=== PATIENT | female | born 1950 | race Caucasian/White ===

== ENCOUNTER 2016-12-04 08:56 | Outpatient (RCR) | payer MEDICARE, MEDICAID ==
[2015-07-25 11:28] VITALS: BP 91/53
[~2016-12-04 08:56] MED LIST: AMARYL1 M1 PO; ATIVAN0.5 MG PO; BENADRYL ALLERG25 M2 PO; BUSPIRONE PO; COGENTIN PO; COREG12.5 M1 PO; CYMBALTA30 M1 PO; DESYREL PO; DITROPAN 5MG TAB5 MG PO; EXCEDRIN EXTRA1 EACH PO; FLEXERIL 1010 MG/TAB PO; JANUVIA50 MG PO; LAMICTAL 25MG T25 MG PO; LYRICA100 MG PO; MAGNESIUM100 MG PO; MIRALAX17 GM PO; NABUMETONE PO; PHENERGAN 25 TA25 MG PO; PLAVIX 75MG TAB75 MG PO; PRILOSEC 20MG20 MG PO; REQUIP 0.5MG0.5 MG PO; SINEMET 25-1001 EACH PO; TOPAMAX200 M1 PO; ULTRAM 50MG TAB50 MG PO; ZOCOR20 M1 PO
== END 2016-12-24 10:20 ==
LOC: OPPGERO 08:56
DX: F33.2 Major depressive disorder, recurrent severe without psychotic features (principal); F41.1 Generalized anxiety disorder

== ENCOUNTER 2016-12-25 07:21 | Outpatient (RCR) | payer MEDICARE, MEDICAID ==
[2015-07-25 11:28] VITALS: BP 91/53
== END 2017-01-24 15:02 ==
LOC: OPPGERO 07:21
DX: F33.2 Major depressive disorder, recurrent severe without psychotic features (principal); F41.1 Generalized anxiety disorder

== ENCOUNTER → 2019-06-17 | Day surgery (SDC) | payer MEDICARE, MEDICAID ==
[2015-07-25 11:28] VITALS: BP 91/53
== END ==
LOC: MSO 09:15
DX: E11.43 Type 2 diabetes mellitus with diabetic autonomic (poly)neuropathy (principal); K31.84 Gastroparesis; Z79.4 Long term (current) use of insulin; K21.0 Gastro-esophageal reflux disease with esophagitis; G20 Parkinson's disease; Z79.84 Long term (current) use of oral hypoglycemic drugs; I25.2 Old myocardial infarction; M81.0 Age-related osteoporosis without current pathological fracture; Z86.73 Personal history of transient ischemic attack (TIA), and cerebral infarction without residual deficits; F41.0 Panic disorder [episodic paroxysmal anxiety]; F32.9 Major depressive disorder, single episode, unspecified; F41.9 Anxiety disorder, unspecified; Z79.899 Other long term (current) drug therapy; Z79.82 Long term (current) use of aspirin; E11.9 Type 2 diabetes mellitus without complications; Z88.0 Allergy status to penicillin; I73.9 Peripheral vascular disease, unspecified; I48.91 Unspecified atrial fibrillation; G47.33 Obstructive sleep apnea (adult) (pediatric); G25.81 Restless legs syndrome; J44.9 Chronic obstructive pulmonary disease, unspecified; I11.0 Hypertensive heart disease with heart failure; I50.9 Heart failure, unspecified; R63.4 Abnormal weight loss; Z91.040 Latex allergy status; Z91.041 Radiographic dye allergy status; Z90.49 Acquired absence of other specified parts of digestive tract
CPT/HCPCS: 00731; J0585; J2405; J2704; J7030

== ENCOUNTER → 2019-08-19 | Day surgery (SDC) | payer MEDICARE, MEDICAID ==
[2015-07-25 11:28] VITALS: BP 91/53
== END | disposition home or self-care (01) ==
LOC: MSO 09:43
DX: R11.2 Nausea with vomiting, unspecified (principal); K31.84 Gastroparesis; K31.89 Other diseases of stomach and duodenum; Z88.0 Allergy status to penicillin; Z88.8 Allergy status to other drugs, medicaments and biological substances; Z91.041 Radiographic dye allergy status; Z91.040 Latex allergy status; Z79.899 Other long term (current) drug therapy; F32.9 Major depressive disorder, single episode, unspecified; M81.0 Age-related osteoporosis without current pathological fracture; I11.0 Hypertensive heart disease with heart failure; I50.9 Heart failure, unspecified; E11.9 Type 2 diabetes mellitus without complications; G47.33 Obstructive sleep apnea (adult) (pediatric); J44.9 Chronic obstructive pulmonary disease, unspecified; K21.9 Gastro-esophageal reflux disease without esophagitis; G20 Parkinson's disease; G25.81 Restless legs syndrome; F41.9 Anxiety disorder, unspecified; Z90.710 Acquired absence of both cervix and uterus; Z90.49 Acquired absence of other specified parts of digestive tract; Z86.73 Personal history of transient ischemic attack (TIA), and cerebral infarction without residual deficits
CPT/HCPCS: 00731; J0585; J2704; J7030

== ENCOUNTER 2019-12-22 10:18 | Outpatient (RCR) | payer MEDICARE, MEDICAID ==
[2015-07-25 11:28] VITALS: BP 91/53
== END 2019-12-24 14:26 ==
LOC: OPPGERO 10:18
DX: F33.1 Major depressive disorder, recurrent, moderate (principal); F41.1 Generalized anxiety disorder; Z99.3 Dependence on wheelchair; E11.9 Type 2 diabetes mellitus without complications; I11.0 Hypertensive heart disease with heart failure; I50.9 Heart failure, unspecified; K21.9 Gastro-esophageal reflux disease without esophagitis; G43.909 Migraine, unspecified, not intractable, without status migrainosus; M79.7 Fibromyalgia; F51.8 Other sleep disorders not due to a substance or known physiological condition; Z86.69 Personal history of other diseases of the nervous system and sense organs; Z79.51 Long term (current) use of inhaled steroids; Z79.899 Other long term (current) drug therapy; Z79.01 Long term (current) use of anticoagulants; Z87.898 Personal history of other specified conditions

== ENCOUNTER 2019-12-27 07:41 | Outpatient (RCR) | payer MEDICARE, MEDICAID ==
[2015-07-25 11:28] VITALS: BP 91/53
== END 2020-01-25 13:21 | disposition still patient (30) ==
LOC: OPPGERO 07:41
DX: F33.1 Major depressive disorder, recurrent, moderate (principal); F41.1 Generalized anxiety disorder; G47.8 Other sleep disorders; E11.9 Type 2 diabetes mellitus without complications; K21.9 Gastro-esophageal reflux disease without esophagitis; I50.9 Heart failure, unspecified; R45.4 Irritability and anger; K11.3 Abscess of salivary gland; G43.909 Migraine, unspecified, not intractable, without status migrainosus; M79.7 Fibromyalgia; Z62.810 Personal history of physical and sexual abuse in childhood; Z63.32 Other absence of family member; Z74.09 Other reduced mobility; Z79.2 Long term (current) use of antibiotics; Z79.51 Long term (current) use of inhaled steroids; Z79.899 Other long term (current) drug therapy; Z86.69 Personal history of other diseases of the nervous system and sense organs; Z90.710 Acquired absence of both cervix and uterus; Z90.89 Acquired absence of other organs; Z98.890 Other specified postprocedural states; Z99.3 Dependence on wheelchair

== ENCOUNTER 2020-03-01 13:44 | Outpatient (RCR) | payer MEDICARE, MEDICAID ==
[2015-07-25 11:28] VITALS: BP 91/53
== END 2020-03-24 15:07 ==
LOC: OPPGERO 13:44
DX: F33.1 Major depressive disorder, recurrent, moderate (principal); F41.1 Generalized anxiety disorder; M79.605 Pain in left leg; M79.604 Pain in right leg; E11.9 Type 2 diabetes mellitus without complications; I11.0 Hypertensive heart disease with heart failure; I50.9 Heart failure, unspecified; K21.9 Gastro-esophageal reflux disease without esophagitis; G43.909 Migraine, unspecified, not intractable, without status migrainosus; M79.7 Fibromyalgia; Z63.32 Other absence of family member; Z62.810 Personal history of physical and sexual abuse in childhood; Z62.811 Personal history of psychological abuse in childhood; Z79.2 Long term (current) use of antibiotics; Z79.51 Long term (current) use of inhaled steroids; Z79.899 Other long term (current) drug therapy; Z82.0 Family history of epilepsy and other diseases of the nervous system; Z90.710 Acquired absence of both cervix and uterus; Z90.89 Acquired absence of other organs; Z99.3 Dependence on wheelchair

== ENCOUNTER 2020-03-27 09:20 | Outpatient (RCR) | payer MEDICARE, MEDICAID ==
[2015-07-25 11:28] VITALS: BP 91/53
== END 2020-04-25 16:08 ==
LOC: OPPGERO 09:20
DX: F33.1 Major depressive disorder, recurrent, moderate (principal); F41.1 Generalized anxiety disorder; I11.0 Hypertensive heart disease with heart failure; I50.9 Heart failure, unspecified; E11.9 Type 2 diabetes mellitus without complications; K21.9 Gastro-esophageal reflux disease without esophagitis; G43.909 Migraine, unspecified, not intractable, without status migrainosus; M79.7 Fibromyalgia; R54 Age-related physical debility; Z79.2 Long term (current) use of antibiotics; Z63.4 Disappearance and death of family member; Z62.811 Personal history of psychological abuse in childhood; Z73.6 Limitation of activities due to disability; Z79.51 Long term (current) use of inhaled steroids; Z79.891 Long term (current) use of opiate analgesic; Z79.899 Other long term (current) drug therapy; Z86.69 Personal history of other diseases of the nervous system and sense organs; Z90.710 Acquired absence of both cervix and uterus; Z98.890 Other specified postprocedural states; Z90.89 Acquired absence of other organs; Z99.3 Dependence on wheelchair

== ENCOUNTER 2020-04-26 10:36 | Outpatient (RCR) | payer MEDICARE, MEDICAID ==
[2015-07-25 11:28] VITALS: BP 91/53
== END 2020-05-26 14:12 ==
LOC: OPPGERO 10:36
DX: F33.1 Major depressive disorder, recurrent, moderate (principal); F41.1 Generalized anxiety disorder; I11.0 Hypertensive heart disease with heart failure; I50.9 Heart failure, unspecified; E11.9 Type 2 diabetes mellitus without complications; K21.9 Gastro-esophageal reflux disease without esophagitis; G43.909 Migraine, unspecified, not intractable, without status migrainosus; M79.7 Fibromyalgia; Z63.4 Disappearance and death of family member; Z62.810 Personal history of physical and sexual abuse in childhood; Z74.1 Need for assistance with personal care; Z79.2 Long term (current) use of antibiotics; Z79.51 Long term (current) use of inhaled steroids; Z86.69 Personal history of other diseases of the nervous system and sense organs; Z90.49 Acquired absence of other specified parts of digestive tract; Z90.710 Acquired absence of both cervix and uterus; Z98.890 Other specified postprocedural states; Z99.3 Dependence on wheelchair

== ENCOUNTER → 2020-04-27 | Day surgery (SDC) | payer MEDICARE, MEDICAID ==
[2015-07-25 11:28] VITALS: BP 91/53
== END ==
LOC: MSO 07:04
DX: E11.43 Type 2 diabetes mellitus with diabetic autonomic (poly)neuropathy (principal); K31.84 Gastroparesis; E66.9 Obesity, unspecified; Z86.73 Personal history of transient ischemic attack (TIA), and cerebral infarction without residual deficits; K21.0 Gastro-esophageal reflux disease with esophagitis; F32.9 Major depressive disorder, single episode, unspecified; M81.0 Age-related osteoporosis without current pathological fracture; I11.0 Hypertensive heart disease with heart failure; I50.9 Heart failure, unspecified; J44.9 Chronic obstructive pulmonary disease, unspecified; G47.33 Obstructive sleep apnea (adult) (pediatric); I48.91 Unspecified atrial fibrillation; G43.909 Migraine, unspecified, not intractable, without status migrainosus; F41.9 Anxiety disorder, unspecified; D64.9 Anemia, unspecified; Z88.1 Allergy status to other antibiotic agents; Z88.0 Allergy status to penicillin; Z91.040 Latex allergy status; Z88.8 Allergy status to other drugs, medicaments and biological substances; Z88.3 Allergy status to other anti-infective agents
CPT/HCPCS: 00731; J0585; J1644; J2704; J7120

== ENCOUNTER 2020-05-29 08:38 | Outpatient (RCR) | payer MEDICARE, MEDICAID ==
[2015-07-25 11:28] VITALS: BP 91/53
== END 2020-06-26 16:12 | disposition home or self-care (01) ==
LOC: OPPGERO 08:38
DX: F41.8 Other specified anxiety disorders (principal); Z99.3 Dependence on wheelchair; Z90.710 Acquired absence of both cervix and uterus; Z90.89 Acquired absence of other organs; Z62.810 Personal history of physical and sexual abuse in childhood

== ENCOUNTER → 2020-08-03 | Day surgery (SDC) | payer MEDICARE, MEDICAID ==
[2015-07-25 11:28] VITALS: BP 91/53
== END ==
LOC: MSO 08:15
DX: K31.84 Gastroparesis (principal); K31.1 Adult hypertrophic pyloric stenosis; E66.9 Obesity, unspecified; F32.9 Major depressive disorder, single episode, unspecified; E11.9 Type 2 diabetes mellitus without complications; D64.9 Anemia, unspecified; K21.00 Gastro-esophageal reflux disease with esophagitis, without bleeding; M81.0 Age-related osteoporosis without current pathological fracture; J44.9 Chronic obstructive pulmonary disease, unspecified; I11.0 Hypertensive heart disease with heart failure; I50.9 Heart failure, unspecified; G47.33 Obstructive sleep apnea (adult) (pediatric); Z99.81 Dependence on supplemental oxygen; F41.9 Anxiety disorder, unspecified; G40.909 Epilepsy, unspecified, not intractable, without status epilepticus; G20 Parkinson's disease; Z88.1 Allergy status to other antibiotic agents; Z88.8 Allergy status to other drugs, medicaments and biological substances; Z88.5 Allergy status to narcotic agent; Z86.73 Personal history of transient ischemic attack (TIA), and cerebral infarction without residual deficits; Z88.0 Allergy status to penicillin; Z88.3 Allergy status to other anti-infective agents; Z91.040 Latex allergy status; Z88.7 Allergy status to serum and vaccine; Z79.01 Long term (current) use of anticoagulants
CPT/HCPCS: 00731; J0585; J2704; J7030